=== PATIENT | male | born 1995 | race Hispanic/Latino ===

== ENCOUNTER 2020-07-16 12:36 | Emergency (ER) | payer BC, SELFPAY ==
--- NOTE | 2020-07-16 12:41 | ED.ABDPAIN ---
HPI - Abdominal Pain General Chief Complaint: Nausea/Vomiting/Diarrhea Stated Complaint: abd pain/vomiting Time Seen by Provider: 07/16/20 12:45 Source: patient and RN notes reviewed Mode of arrival: ambulatory Limitations: no limitations History of Present Illness HPI narrative: 24 old male presents with concern for 2 episodes of vomiting. Reports he ate shrimp on Thursday, started feeling nauseous on Thursday, has had 2 episodes of vomiting last 24 hours. He denies any diarrhea, abdominal pain, fever, body aches, chills, sweats, rhinorrhea, nasal congestion, cough, shortness of breath. Denies any intervention. Denies any known sick contacts. MD elicited complaint: abdominal pain Related Data Home Medications Medication Instructions Recorded Confirmed No Home Medications 05/12/19 05/12/19 Allergies Allergy/AdvReac Type Severity Reaction Status Date / Time No Known Allergies Allergy Verified 07/16/20 12:45 Review of Systems Review of Systems: Narrative: CONSTITUTIONAL: Denies malaise, chills, sweats, or fever. CARDIOVASCULAR: Denies chest pain, palpitations, or edema. RESPIRATORY: Denies cough or dyspnea. GASTROINTESTINAL: Denies abdominal pain, diarrhea, bloody, or mucous stools. Reports nausea, vomiting, GENITOURINARY: Denies dysuria or hematuria. SKIN: Denies rash or itching. MUSCULOSKELETAL: Denies back pain, joint pain, or myalgia. NEUROLOGIC: Denies numbness, weakness, or headache. PSYCHIATRIC: Denies anxiety or depression. All systems reviewed & are unremarkable except as noted in HPI and below PMFSH Comments At time of signature, agree with nursing past medical, surgical, social and family history. There is no relevant family history pertinent to the presenting complaint Exam Narrative: Exam Narrative: GENERAL: Well-appearing, well-nourished, and in no acute distress. HEAD: Normocephalic, atraumatic. EYES: PERRLA, conjunctivae clear, and EOMI. ENT: Nares clear, turbinates pink, no rhinorrhea or epistaxis. Mucous membranes moist. Oropharynx without edema, erythema, or lesions. Tonsils not enlarged and without exudate. NECK: Supple. No lymphadenopathy CHEST: Speaks in full sentences. No respiratory distress. HEART: Regular rate and rhythm. ABDOMEN: Soft, flat, nondistended. No guarding, rebound tenderness, or rigid. No pulsatilla masses. Bowel sounds present in all four quadrants. No organomegaly. Negative Vee?s sign. No periumbilical tenderness. No Supra public tenderness or distension. SKIN: Warm, dry, no rash. NEURO: Alert and oriented x3. PSYCH: Normal mood and affect Course Course Emergency Course: Patient is aware of diagnosis, understands and agrees to treatment plan. Anticipatory guidance given. Patient agrees to follow-up as directed and is aware of reasons to seek care at the emergency department. Portions of this record may have been created with voice recognition software Vital Signs Vital signs: Vital Signs Temperature 98.2 F 07/16/20 12:50 Pulse Rate 93 07/16/20 12:50 Respiratory Rate 16 07/16/20 12:50 Blood Pressure 138/77 07/16/20 12:50 Pulse Oximetry 100 07/16/20 12:50 Temperature 98.2 F 07/16/20 12:50 Pulse Rate 93 07/16/20 12:50 Respiratory Rate 16 07/16/20 12:50 Blood Pressure 138/77 07/16/20 12:50 Pulse Oximetry 100 07/16/20 12:50 Reviewed. MDM - Abdominal Pain MDM Narrative Medical decision making narrative: No evidence of pancreatitis, AAA, cholecystitis, choledocholithiasis, cholangitis, mesenteric ischemia, small bowel obstruction, diverticulitis, colitis, appendicitis, or pelvic etiology such as ovarian/testicular torsion, TOA, or ectopic . Patient has no history of peptic ulcer, H. pylori, chronic aspirin NSAID or corticosteroid use, chronic alcohol use, no history of inflammatory bowel disease, no history of active abdominal infection or malignancy. Patient has no history of hernia or intra-abdominal surgeries, celestino
[2020-07-16 12:50] VITALS: BP 138/77; PULSE 93; RESP 16; TEMP 36.8; O2SAT 100
== END 2020-07-16 13:01 | disposition home or self-care (01) ==
PROVIDERS: Emergency Provider Nurse Practitioner
DX: R11.10 Vomiting, unspecified (principal)
CPT/HCPCS: 99211; G0463

== ENCOUNTER 2021-08-01 13:44 | Emergency (ER) | payer BC, SELFPAY ==
[2021-08-01 13:54] VITALS: BP 134/76; PULSE 65; RESP 18; TEMP 36.9; O2SAT 99
--- NOTE | 2021-08-01 13:55 | ED.NECK ---
HPI - Neck Pain/Injury General Chief Complaint: Neck Pain/Injury Stated Complaint: Neck pain Time Seen by Provider: 08/01/21 13:50 Source: patient, RN notes reviewed and old records reviewed Mode of arrival: ambulatory Limitations: no limitations History of Present Illness HPI Narrative: 25-year-old male presents to the [facility] with left lateral neck pain, no midline tenderness. No numbness or tingling in extremities. Patient states that he called into work today because he slept funny and was having lateral neck pain, boss told him he needed to be seen and evaluated with a note. Denies any midline tenderness. No loss retention of bowel or bladder. MD complaint: neck pain (left later) Onset (ago): hour(s) Place: home Radiation: left lateral Severity: mild Quality: aching Exacerbating factors: movement of neck Treatments prior to arrival: none Related Data Allergies Allergy/AdvReac Type Severity Reaction Status Date / Time No Known Allergies Allergy Verified 08/01/21 13:47 Review of Systems Review of Systems: All systems reviewed & are unremarkable except as noted in HPI and below Constitutional: Constitutional: Reports no additional constitutional complaints, Denies chills and Denies fever(s) Eyes: Eyes: Reports no additional eye complaints ENT: Reports system reviewed and no additional complaints, except as documented Cardiovascular: Cardiovascular: Reports no additional cardiovascular complaints and Denies chest pain Respiratory: Respiratory: Reports no additional respiratory complaints, Denies cough and Denies dyspnea Gastrointestinal: Gastrointestinal: Reports no additional gastrointestinal complaints, Denies abdominal pain, Denies diarrhea and Denies vomiting Musculoskeletal: Musculoskeletal: Reports as per HPI and Reports muscle cramps (left lateral neck) Integumentary/Breasts: Skin/Breast: Reports system reviewed and no additional complaints, except as docu Neurologic: Reports system reviewed and no additional complaints, except as documented, Denies headache(s), Denies focal weakness, Denies numbness and Denies weakness Psychiatric: Psychiatric: Reports no additional psychiatric complaints Allergic/Immunologic: Allergic/Immunologic: Reports no additional allergic/immunologic complaints PMFSH Past Medical History Medical History (Updated 08/01/21 @ 16:11 by Marybeth Dumont APRN) No significant medical problems Surgical History Surgical History (Updated 08/01/21 @ 16:11 by Marybeth Dumont APRN) No history of previous surgery Comments At the time of my signature, I reviewed and agree with the nursing past medical, surgical, social, and family history. There is no relevant family history pertinent to the patient complaint. Exam Const: General: healthy appearing, no acute distress and alert Nutritional Appearance: well nourished Orientation/consciousness: patient oriented x3 Limitations: no limitations HENMT: Head: normal to inspection Ears: external ears normal, TM's normal bilaterally and EAC's normal Eyes: Pupils: Equal, round and reactive pupils present Neck: Neck: normal visual inspection, full ROM, no lymphadenopathy, no meningeal signs, trachea midline, supple, no anterior neck swelling, no midline deformity, tender and No submandibular swelling Chest: Chest palpation & inspection: normal inspection of the chest Resp: Effort & Inspection: normal respiratory effort and no use of accessory muscles Auscultation: clear to auscultation bilaterally, no crackles, no rales, no rhonchi and no wheezes Cardio: Rate: regular rate Rhythm: regular rhythm Back/Spine/Pelvis: Back: no CVA tenderness Cervical Spine: normal cervical lordosis, cervical ROM normal, cervical muscular tenderness (left lateral ), pain with cervical ROM, No Cervical spine tenderness and No step off deformity Thoracic/Lumbar Spine: thoracic and lumbar spine normal to inspection, No thoraco-lumbar spasm, No thoracic spina
== END 2021-08-01 14:00 | disposition home or self-care (01) ==
PROVIDERS: Emergency Provider Nurse Practitioner
DX: S16.1XXA Strain of muscle, fascia and tendon at neck level, initial encounter (principal); X58.XXXA Exposure to other specified factors, initial encounter
CPT/HCPCS: 99213; G0463

== ENCOUNTER 2022-09-28 14:21 | Emergency (ER) | payer SELFPAY ==
--- NOTE | ~2022-09-28 | XR_ITS ---
EXAM: XR ankle LT min 3V DATE: 09/28/2022 14:37 HISTORY: LATERAL ANKLE PAIN/SWELLING, POSS INJ LAST NIGHT . COMPARISON: None available. FINDINGS: Normal mineralization. No fracture or dislocation. No lytic or blastic lesion. Joint space s are maintained. Plantar and Achilles enthesopathy. No erosion or periosteal change. Mild ankle soft tissue swelling. IMPRESSION: No acute osseous finding in the left ankle. Reviewed, dictated and finalized at location K.
[2022-09-28 14:26] VITALS: BP 131/78; PULSE 109; RESP 16; TEMP 36.8; O2SAT 99
--- NOTE | 2022-09-28 14:30 | ED.LOWEXIN ---
HPI - Extremity Injury (Lower) General Chief Complaint: Extremity Injury, Lower Stated Complaint: left ankle pain Time Seen by Provider: 09/28/22 14:24 History of Present Illness HPI Narrative: 26-year-old male reports for evaluation of left ankle pain after he twisted it last night. Patient reports he was walking on the driveway, stepped wrong and inverted his left ankle and landed on his his glutes. Reports having edema and pain to his ankle since. Patient reports he is able to bear a small amount of weight but has difficulty ambulating. Denies injury or pain to other extremities. He did not hit his head or lose consciousness during the fall. Related Data Allergies Allergy/AdvReac Type Severity Reaction Status Date / Time No Known Allergies Allergy Verified 09/28/22 14:32 Review of Systems Review of Systems: CONSTITUTIONAL: Denies fever, chills EYES: Denies visual changes, redness, or discharge. ENT: Denies rhinorrhea, congestion, sore throat, or otalgia. CARDIOVASCULAR: Denies chest pain, palpitations, or edema. RESPIRATORY: Denies cough or dyspnea. GASTROINTESTINAL: Denies abdominal pain, nausea, vomiting, or diarrhea. GENITOURINARY: Denies dysuria or hematuria. SKIN: Denies rash or itching. MUSCULOSKELETAL: See HPI NEUROLOGIC: Denies headache, numbness, dizziness, or weakness. PSYCHIATRIC: Denies anxiety or depression. [facility] Past Medical History Medical History No significant medical problems Surgical History Surgical History No history of previous surgery Exam Narrative: GENERAL: Well-appearing, well-nourished, and in no acute distress. HEAD: Normocephalic, atraumatic. NECK: Supple. CHEST: Clear to auscultation. No respiratory distress. No wheezes rales or rhonchi HEART: Regular rate and rhythm. No murmur heard. Normal peripheral pulses. EXTREMITIES: Left lateral malleolus edema and pain. No tenderness to knee, tib-fib, toes, metatarsals, calcaneus, Achilles, medial malleolus. Full range of motion of toes, ankle, knee. Negative high squeeze. No overlying skin changes. DP pulses 2+. Sensation intact. Cap refill less than 2. SKIN: Warm, dry, no rash. NEURO: No focal deficits. Alert and oriented x3. PSYCH: Normal mood and affect. Course Vital Signs Vital signs: Vital Signs Temperature 98.3 F 09/28/22 14:26 Pulse Rate 109 H 09/28/22 14:26 Respiratory Rate 16 09/28/22 14:26 Blood Pressure 131/78 09/28/22 14:26 Pulse Oximetry 99 09/28/22 14:26 Oxygen Delivery Room Air 09/28/22 14:26 Temperature 98.3 F 09/28/22 14:26 Pulse Rate 109 H 09/28/22 14:26 Respiratory Rate 16 09/28/22 14:26 Blood Pressure 131/78 09/28/22 14:26 Pulse Oximetry 99 09/28/22 14:26 Oxygen Delivery Room Air 09/28/22 14:26 MDM - Extremity Injury (Lower) MDM Narrative Medical decision making narrative: 26-year-old male reports for evaluation of left lateral malleolus pain after he inverted his ankle last night while walking on the driveway. Patient reports he fell to his glutes but did not obtain other injuries. Did not hit his head, no LOC. Exam reveals tenderness and edema to lateral left malleolus. Patient neurovascularly intact. X-rays reveal no acute osseous abnormality. Patient received Tylenol and ibuprofen in the ED for pain control. Discussed x-ray findings with the patient. Patient provided with crutches and Oniel bandage, encouraged to RICE. Flexeril and naproxen sent to pharmacy. PCP referral provided. Strict ED return precautions discussed. Vitals remained stable throughout ED visit. Patient agrees with plan verbalizes understanding. He is discharged in stable condition. Medical Records Attestation: I reviewed the patient's medical records. Imaging Data Attestation: I personally reviewed and interpreted this imaging study as follows: Radiologist's impr
--- NOTE | 2022-09-28 14:32 | PC.NURSE ---
Patient off unit to radiology.
[2022-09-28] MEDS: ACETAMINOPHEN 500 MG TABLET 1000 MG PO (14:46)
[2022-09-28] MEDS: IBUPROFEN 600 MG TABLET PO (14:46)
== END 2022-09-28 16:00 | disposition home or self-care (01) ==
PROVIDERS: Emergency Provider Physician Assistant
DX: S93.402A Sprain of unspecified ligament of left ankle, initial encounter (principal); X50.0XXA Overexertion from strenuous movement or load, initial encounter
CPT/HCPCS: 73610; 99283; A9270

== ENCOUNTER 2022-10-07 14:54 | Emergency (ER) | payer SELFPAY ==
--- NOTE | 2022-10-07 14:58 | ED.LOWEXIN ---
HPI - Extremity Injury (Lower) General Chief Complaint: Extremity Injury, Lower Stated Complaint: ankle injury - re check Time Seen by Provider: 10/07/22 14:58 Source: patient, RN notes reviewed and old records reviewed Mode of arrival: ambulatory Limitations: no limitations History of Present Illness HPI Narrative: 26-year-old male presents to the [facility] with complaints of continued left ankle pain. Was evaluated with the ER on the 28 of September, 9 days ago. Was diagnosed with a sprained ankle. Patient reports that he needs a work note because he did not go to work last week. Denies any new injury. Still mildly swollen Took 1 ibuprofen yesterday Treatments prior to arrival: NSAIDS Related Data Home Medications Medication Instructions Recorded Confirmed No Home Medications 10/07/22 10/07/22 Allergies Allergy/AdvReac Type Severity Reaction Status Date / Time No Known Allergies Allergy Verified 10/07/22 14:59 Review of Systems Review of Systems: All systems reviewed & are unremarkable except as noted in HPI and below Constitutional: Constitutional: Reports no additional constitutional complaints Eyes: Eyes: Reports no additional eye complaints ENT: Reports system reviewed and no additional complaints, except as documented Cardiovascular: Cardiovascular: Reports no additional cardiovascular complaints, Denies chest pain and Denies dyspnea Respiratory: Respiratory: Reports no additional respiratory complaints, Denies chest congestion, Denies cough and Denies dyspnea Gastrointestinal: Gastrointestinal: Reports no additional gastrointestinal complaints, Denies abdominal pain, Denies nausea and Denies vomiting Musculoskeletal: Musculoskeletal: Reports as per HPI and Reports joint swelling (Left lateral) Integumentary/Breasts: Skin/Breast: Reports system reviewed and no additional complaints, except as docu Neurologic: Reports system reviewed and no additional complaints, except as documented Psychiatric: Psychiatric: Reports no additional psychiatric complaints Allergic/Immunologic: Allergic/Immunologic: Reports no additional allergic/immunologic complaints [facility] Past Medical History Medical History No significant medical problems Surgical History Surgical History No history of previous surgery Comments At the time of my signature, I reviewed and agree with the nursing past medical, surgical, social, and family history. There is no relevant family history pertinent to the patient complaint. Exam Const: General: cooperative, healthy appearing, comfortable, no acute distress, well developed, alert and well nourished Nutritional Appearance: well nourished Orientation/consciousness: patient oriented x3 Limitations: no limitations HENMT: Head: normal to inspection Ears: hearing grossly normal bilaterally and external ears normal Face/Nose/Sinus: Normal external nose present, Normal nares present, Normal nasal mucous membranes and turbinates present and normal facial exam Face and sinus: normal facial exam Mouth: Yes lip normal Eyes: General: appearance normal, both eyes and all related structures Alignment and Position: alignment normal Periorbital: periorbital findings normal Conjunctivae: conjunctivae normal Pupils: Equal, round and reactive pupils present EOM: EOMs intact bilaterally Neck: Neck: normal visual inspection, full ROM, no lymphadenopathy and no meningeal signs Chest: Chest palpation & inspection: normal inspection of the chest Resp: Effort & Inspection: normal respiratory effort and able to speak in complete sentences Auscultation: clear to auscultation bilaterally, no crackles, no rales, no rhonchi and no wheezes Cardio: Rate: regular rate Rhythm: regular rhythm Back/Spine/Pelvis: Cervical Spine: cervical ROM normal Thoracic/Lumbar Spine: No thoracic spinal tende
[2022-10-07 14:59] VITALS: BP 148/85; PULSE 68; RESP 16; TEMP 36.7; O2SAT 99
== END 2022-10-07 15:07 | disposition home or self-care (01) ==
PROVIDERS: Emergency Provider Nurse Practitioner
DX: S93.402D Sprain of unspecified ligament of left ankle, subsequent encounter (principal); S96.912D Strain of unspecified muscle and tendon at ankle and foot level, left foot, subsequent encounter; X58.XXXD Exposure to other specified factors, subsequent encounter
CPT/HCPCS: 99212; G0463

== ENCOUNTER 2023-08-01 18:05 | Emergency (ER) | payer OTHER, BC, SELFPAY ==
[2023-08-01 18:13] VITALS: BP 130/80; PULSE 80; RESP 16; TEMP 37; O2SAT 99
--- NOTE | 2023-08-01 18:28 | ED.URI ---
HPI - URI/Sore Throat General Chief Complaint: Upper Respiratory Infection Stated Complaint: Sore Throat Time Seen by Provider: 08/01/23 18:28 Source: patient Mode of arrival: ambulatory Limitations: no limitations History of Present Illness HPI Narrative: 27-year-old male presents with complaint sore throat for 1 week. Throat Pain is worse with swallowing and states feels swollen. Afebrile. Pain started after attending a family republican. Reports over the past week has had increased pain when eating irritating foods. All systems reviewed and negative except as noted above. Related Data Allergies Allergy/AdvReac Type Severity Reaction Status Date / Time No Known Allergies Allergy Verified 08/01/23 18:16 Review of Systems Review of Systems: CONSTITUTIONAL: Denies fever, chills, or sweats. EYES: Denies visual changes, redness, or discharge. ENT: Denies rhinorrhea, congestion . Reports sore throat. Denies otalgia. CARDIOVASCULAR: Denies chest pain, palpitations, or edema. RESPIRATORY: Denies cough or dyspnea. GASTROINTESTINAL: Denies abdominal pain, nausea, vomiting, or diarrhea. GENITOURINARY: Denies dysuria or hematuria. SKIN: Denies rash or itching. MUSCULOSKELETAL: Denies back pain, joint pain, or myalgia. NEUROLOGIC: Denies headache, numbness, or weakness. PSYCHIATRIC: Denies anxiety or depression. All other systems reviewed are negative, except as documented in HPI. [facility] Past Medical History Medical History No significant medical problems Surgical History Surgical History No history of previous surgery Comments At time of signature, agree with nursing past medical, surgical, social and family history. There is no relevant family history pertinent to the presenting complaint. Exam Narrative: GENERAL: This is a well-nourished, well-developed patient, in no apparent distress. HEAD: normocephalic, atraumatic. EYES: PERRL. Sclera clear/white. Vision is grossly intact. EARS: External ears normal NOSE: External nose normal THROAT: Mucous membranes moist, erythematous Posterior pharynx, erythema and swelling to uvula. No exudates. NECK: Neck supple, non-tender without lymphadenopathy, masses or thyromegaly. CARDIOVASCULAR: Regular rate and rhythm without murmurs, gallops, or rubs. RESPIRATORY: Clear to auscultation. Breath sounds equal bilaterally. No wheezes, rales, or rhonchi. SKIN: warm, Dry, intact with no suspicious lesions or rash, good texture and turgor. NEURO: awake, alert, and oriented to person, place and time. There were no obvious focal neurologic abnormalities. EXTREMITIES: No joint tenderness, effusion, or edema noted. Course Course Level of Care: Express Care Visit Vital Signs Vital signs: Vital Signs Temperature 37.0 C 08/01/23 18:13 Pulse Rate 80 08/01/23 18:13 Respiratory Rate 16 08/01/23 18:13 Blood Pressure 130/80 08/01/23 18:13 Pulse Oximetry 99 08/01/23 18:13 Oxygen Delivery Room Air 08/01/23 18:13 Temperature 37.0 C 08/01/23 18:13 Pulse Rate 80 08/01/23 18:13 Respiratory Rate 16 08/01/23 18:13 Blood Pressure 130/80 08/01/23 18:13 Pulse Oximetry 99 08/01/23 18:13 Oxygen Delivery Room Air 08/01/23 18:13 reviewed MDM - URI/Sore Throat MDM Narrative Medical decision making narrative: Patient is aware of diagnosis, understands and agrees to treatment plan. Anticipatory guidance given. Patient agrees to follow-up as directed and is aware of reasons to seek care at the emergency department. Portions of this record may have been created with voice recognition software Differential Diagnosis Differential diagnosis: Likely other ( uvulitis) Lab Data Labs: Strep Screen Presumptive Negative *(Reference Range: Negative)* Discharge Plan D
== END 2023-08-01 18:45 | disposition home or self-care (01) ==
PROVIDERS: Emergency Provider Nurse Practitioner Family
DX: K12.2 Cellulitis and abscess of mouth (principal)
CPT/HCPCS: 87081; 87880; 99213; G0463